=== PATIENT | male | born 1985 ===

== ENCOUNTER 2024-07-03 13:28 | Emergency (ER) | payer SELFPAY ==
[~2024-07-03] VITALS: Ht 182.9 cm; Wt 88.6 kg
[2024-07-03 13:34] VITALS: BP 133/88; TEMP 98.4
[2024-07-03 15:19] LABS: COLLECTION METHOD CLEAN CATCH
[2024-07-03 15:34] LABS: PH 5.5 (5.0-8.5); URINE APPEARANCE CLOUDY (CLEAR/HAZY); URINE BLOOD 2+ (NEGATIVE); URINE COLOR YELLOW (YELLOW); URINE GLUCOSE NEGATIVE (NEGATIVE); URINE KETONE TRACE (NEGATIVE); URINE NITRATE NEGATIVE (NEGATIVE); URINE PROTEIN(semi-quant) 1+ (NEGATIVE); URINE UROBILINOGEN 0.2 E.U/dL (0.2-1.0)
[2024-07-03] MEDS ORDERED: cefTRIAXone 500 MG,Lidocaine PF 1% 1 ML IM ONE (16:15)
[2024-07-03] MEDS ORDERED: Azithromycin 250 MG TAB PO ONE (16:15)
[2024-07-03 16:53] VITALS: PULSE 71
== END 2024-07-03 16:55 | disposition home or self-care (01) ==
LOC: COL.ER 13:28
PROVIDERS: Nurse Practitioner
DX: A56.01 Chlamydial cystitis and urethritis (principal); A54.01 Gonococcal cystitis and urethritis, unspecified; F17.200 Nicotine dependence, unspecified, uncomplicated
CPT/HCPCS: J0696